=== PATIENT | female | born 2000 ===

== ENCOUNTER 2019-05-08 21:32 | Emergency (ER) | payer SELFPAY ==
[~2019-05-08] VITALS: Ht 152.4 cm; Wt 49.0 kg
== END 2019-05-08 22:55 | disposition home or self-care (01) ==
LOC: ER 21:32
DX: L23.7 Allergic contact dermatitis due to plants, except food (principal)
CPT/HCPCS: 96372; 99282-25; J3301

== ENCOUNTER 2019-07-25 12:25 | Emergency (ER) | payer SELFPAY ==
[~2019-07-25] VITALS: Ht 152.4 cm; Wt 50.8 kg
== END 2019-07-25 13:22 | disposition home or self-care (01) ==
LOC: ER 12:25
DX: K21.9 Gastro-esophageal reflux disease without esophagitis (principal)
CPT/HCPCS: 99282

== ENCOUNTER 2024-07-21 07:32 | Emergency (ER) | payer OTHER ==
[~2024-07-21] VITALS: Ht 154.9 cm; Wt 54.4 kg
[2024-07-21 07:55] VITALS: BP 128/74
[2024-07-21] MEDS ORDERED: Dexamethasone Sod Phos 10 MG/ML 1ML VIAL PO ONE (08:35)
[2024-07-21] MEDS ORDERED: Penicillin V Potassium 250 MG Tab PO ONE (08:35)
[2024-07-21] MEDS ORDERED: PENVK500 PO (08:38)
== END 2024-07-21 09:10 ==
LOC: ER 07:32
DX: J02.0 Streptococcal pharyngitis (principal)
CPT/HCPCS: 87430; 99283; A9270; J1100

== ENCOUNTER 2024-09-07 13:33 | Emergency (ER) | payer OTHER ==
[~2024-09-07] VITALS: Ht 165.1 cm; Wt 56.7 kg
[~2024-09-07 13:33] MED LIST: PENVK500 PO
[2024-09-07 13:40] VITALS: BP 125/68
== END 2024-09-07 14:55 | disposition home or self-care (01) ==
LOC: ER 13:33
DX: S69.92XA Unspecified injury of left wrist, hand and finger(s), initial encounter (principal); W19.XXXA Unspecified fall, initial encounter
CPT/HCPCS: 73110; 99283-25

== ENCOUNTER 2024-10-07 16:32 | Emergency (ER) | payer OTHER ==
[~2024-10-07] VITALS: Ht 154.9 cm; Wt 52.2 kg
[2024-10-07 16:45] VITALS: BP 119/78
[2024-10-07] MEDS ORDERED: Ondansetron 4 MG SoluTab SL ONE (17:30)
[2024-10-07] MEDS ORDERED: Amoxicillin/Clavulanate K 875 MG Tab PO ONE (17:30)
[2024-10-07] MEDS ORDERED: ONDA4 PO (17:32)
[2024-10-07] MEDS ORDERED: AMOCLA875 PO (17:32)
[2024-10-08] MEDS ORDERED: AMOCLA875 PO (09:40)
== END 2024-10-07 17:54 | disposition home or self-care (01) ==
LOC: ER 16:32
DX: J02.0 Streptococcal pharyngitis (principal)
CPT/HCPCS: 87430; 99283; A9270

== ENCOUNTER 2024-10-08 08:50 | Emergency (ER) | payer OTHER ==
[~2024-10-08] VITALS: Ht 152.4 cm; Wt 52.2 kg
[~2024-10-08 08:50] MED LIST changes: +AMOCLA875 PO; +ONDA4 PO
[2024-10-08 09:33] VITALS: BP 101/63
[2024-10-08] MEDS ORDERED: Dexamethasone Sod Phos 10 MG/ML 1ML VIAL PO ONE (09:40)
[2024-10-08] MEDS ORDERED: AMOCLA875 PO (09:40)
== END 2024-10-08 09:45 | disposition home or self-care (01) ==
LOC: ER 08:50
DX: J02.0 Streptococcal pharyngitis (principal); Z59.89 Other problems related to housing and economic circumstances
CPT/HCPCS: 99282; J1100

== ENCOUNTER 2024-11-29 14:33 | Emergency (ER) | payer OTHER ==
[~2024-11-29] VITALS: Ht 154.9 cm; Wt 49.9 kg
[2024-11-29 15:15] VITALS: BP 100/72
[2024-11-29] MEDS ORDERED: SULTRIDS PO (16:57)
== END 2024-11-29 17:07 | disposition home or self-care (01) ==
LOC: ER 14:33
DX: L02.216 Cutaneous abscess of umbilicus (principal)
CPT/HCPCS: 81025; 99282

== ENCOUNTER 2025-07-29 08:36 | Emergency (ER) | payer OTHER ==
[~2025-07-29] VITALS: Ht 154.9 cm; Wt 54.4 kg
[~2025-07-29 08:36] MED LIST changes: +SULTRIDS PO
[2025-07-29 09:54] VITALS: BP 114/95
[2025-07-29] MEDS ORDERED: Dexamethasone Sod Phos 10 MG/ML 1ML VIAL PO ONE (10:00)
[2025-07-29] MEDS ORDERED: CEPACOL THROAT1 EAC1 MM (10:38)
[2025-07-29] MEDS ORDERED: PRED20 PO (10:38)
== END 2025-07-29 11:00 | disposition home or self-care (01) ==
LOC: ER 08:36
DX: J02.9 Acute pharyngitis, unspecified (principal)
CPT/HCPCS: 87081; 87430; 99282; J1100